=== PATIENT | female | born 1970 | race Hispanic/Latino ===

== ENCOUNTER 2017-06-18 22:49 | Emergency (ER) | payer MEDICAID, OTHER ==
[~2017-06-18] VITALS: Ht 162.6 cm; Wt 65.8 kg
[2017-06-18] MEDS ORDERED: NKM (22:53)
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
[2017-06-18 22:55] VITALS: BP 139/95
[2017-06-19 00:55] VITALS: BP 139/95
== END 2017-06-19 00:55 | disposition home or self-care (01) ==
LOC: EDBD 22:49 → EMR 23:07
DX: F10.129 Alcohol abuse with intoxication, unspecified (principal)
CPT/HCPCS: 99284

== ENCOUNTER 2019-11-05 20:02 | Emergency (ER) | payer MEDICAID ==
[~2019-11-05] VITALS: Ht 170.2 cm; Wt 99.8 kg
[~2019-11-05 20:02] MED LIST: NKM
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
[2019-11-05] MEDS ORDERED: Haloperidol 5mg/ml Inj IM ONE (20:15)
[2019-11-05] MEDS ORDERED: LORazepam Inj 2mg/ml 1ml IM ONE (20:15)
[2019-11-05] MEDS ORDERED: DiphenhydrAMINE 50mg/ml Inj IM ONE (20:15)
[2019-11-05 20:42] VITALS: BP 134/96
[2019-11-05 21:30] LABS: BASOPHILS % (AUTO) 0.7 % (0.0-2.0); EOSINOPHILS % (AUTO) 1.5 % (0.0-3.0); LYMPHOCYTES % (AUTO) 28.4 % (20.0-45.0); MEAN CORPUSCULAR VOLUME 88 FL (80-99); MONOCYTES % (AUTO) 3.3 % (1.0-10.0); NEUTROPHILS % (AUTO) 66.1 % (45.0-75.0); PLATELET COUNT 244 K/UL (150-450); RED BLOOD COUNT 5.13 M/UL (4.20-5.40); RED CELL DISTRIBUTION WIDTH 12.6 % (11.6-14.8); WHITE BLOOD COUNT 10.7 K/UL (4.8-10.8)
[2019-11-05 21:38] LABS: ANION GAP 20 mmol/L (5-15); BLOOD UREA NITROGEN 10 mg/dL (7-18); CALCIUM 8.8 MG/DL (8.5-10.1); CARBON DIOXIDE 18 MMOL/L (21-32); CHLORIDE 108 MMOL/L (98-107); CREATININE 0.8 MG/DL (0.55-1.30); POTASSIUM 3.5 MMOL/L (3.5-5.1); SODIUM 146 MMOL/L (136-145)
[2019-11-05 21:42] LABS: ALANINE AMINOTRANSFERASE 20 U/L (12-78); ALBUMIN 4.5 G/DL (3.4-5.0); ALBUMIN/GLOBULIN RATIO 1.2 (1.0-2.7); ALKALINE PHOSPHATASE 79 U/L (46-116); ASPARTATE AMINO TRANSFERASE 18 U/L (15-37); BILIRUBIN,TOTAL 0.3 MG/DL (0.2-1.0)
--- NOTE | 2019-11-05 22:40 | Emergency Room Report ---
Physical Exam Vital Signs Date Time Temp Pulse Resp B/P (MAP) Pulse Ox O2 Delivery O2 Flow Rate FiO2 11/05/19 20:05 98.2 130 20 134/96 (109) 96 Room Air Medical Decision Making Diagnostic Impression: Primary Impression: Behavioral disorder Additional Impression: Alcohol intoxication ER Course Assumed care of the patient from the previous provider at approximately 2200 h rs. Please refer to initial note for full history and physical exam. Briefly, 49-year-old female brought in on 5150 hold by [employer] for evaluation of bizarre behavior. She has received sedation. Labs show elevated alcohol level. Talk screen otherwise negative. Labs otherwise unremarkable. Patient is pending sobriety. Will sign out to oncoming provider. Laboratory Tests Test 11/05/19 21:11 11/06/19 03:00 11/06/19 03:50 White Blood Count 10.7 K/UL (4.8-10.8) Red Blood Count 5.13 M/UL (4.20-5.40) Hemoglobin 15.0 G/DL (12.0-16.0) Hematocrit 45.0 % (37.0-47.0) Mean Corpuscular Volume 88 FL (80-99) Mean Corpuscular Hemoglobin 29.3 PG (27.0-31.0) Mean Corpuscular Hemoglobin Concent 33.4 G/DL (32.0-36.0) Red Cell Distribution Width 12.6 % (11.6-14.8) Platelet Count 244 K/UL (150-450) Mean Platelet Volume 7.4 FL (6.5-10.1) Neutrophils (%) (Auto) 66.1 % (45.0-75.0) Lymphocytes (%) (Auto) 28.4 % (20.0-45.0) Monocytes (%) (Auto) 3.3 % (1.0-10.0) Eosinophils (%) (Auto) 1.5 % (0.0-3.0) Basophils (%) (Auto) 0.7 % (0.0-2.0) Sodium Level 146 MMOL/L (136-145) H Potassium Level 3.5 MMOL/L (3.5-5.1) Chloride Level 108 MMOL/L (98-107) H Carbon Dioxide Level 18 MMOL/L (21-32) L Anion Gap 20 mmol/L (5-15) H Blood Urea Nitrogen 10 mg/dL (7-18) Creatinine 0.8 MG/DL (0.55-1.30) Estimated Glomerular Filtration Rate > 60 mL/min (>60) Glucose Level 88 MG/DL (74-106) Calcium Level 8.8 MG/DL (8.5-10.1) Magnesium Level 2.3 MG/DL (1.8-2.4) Total Bilirubin 0.3 MG/DL (0.2-1.0) Aspartate Amino Transferase (AST) 18 U/L (15-37) Alanine Aminotransferase (ALT) 20 U/L (12-78) Alkaline Phosphatase 79 U/L (46-116) Total Protein 8.1 G/DL (6.4-8.2) Albumin 4.5 G/DL (3.4-5.0) Globulin 3.6 g/dL Albumin/Globulin Ratio 1.2 (1.0-2.7) Salicylates Level 3.6 ug/mL (2.8-20) Acetaminophen Level < 2 MCG/ML (10-30) L Serum Alcohol 285 mg/dL 162 mg/dL Urine Color Pale yellow Urine Appearance Clear Urine pH 5 (4.5-8.0) Urine Specific [place] 1.015 (1.005-1.035) Urine Protein Negative (NEGATIVE) Urine Glucose (UA) Negative (NEGATIVE) Urine Ketones Negative (NEGATIVE) Urine Blood Negative (NEGATIVE) Urine Nitrite Negative (NEGATIVE) Urine Bilirubin Negative (NEGATIVE) Urine Urobilinogen Normal MG/DL (0.0-1.0) Urine Leukocyte Esterase Negative (NEGATIVE) Urine HCG, Qualitative Negative (NEGATIVE) Urine Opiates Screen Negative (NEGATIVE) Urine Barbiturates Screen Negative (NEGATIVE) Phencyclidine (PCP) Screen Negative (NEGATIVE) Urine Amphetamines Screen Negative (NEGATIVE) Urine Benzodiazepines Screen Negative (NEGATIVE) Urine Cocaine Screen Negative (NEGATIVE) Urine Marijuana (THC) Screen Positive (NEGATIVE) H Microbiology Date/Time Source Procedure Growth Status 11/06/19 03:00 Nasopharynx SARS-CoV-2 RdRp Gene Assay - Final Complete Last Vital Signs Date Time Temp Pulse Resp B/P (MAP) Pulse Ox O2 Delivery O2 Flow Rate FiO2 11/05/19 20:42 98.2 130 20 134/96 96 Room Air Signed Out To: Dr. Reeves Referrals: SANA RODRIGUEZ,REFERRING (PCP) Additional Instructions: Please note that this report is being documented using [employer]AG[employer] technology. This can lead to erroneous entry secondary to incorrect interpretation by the dictating instrument. Yahir Dawson MD Nov 05, 2019 22:39
[2019-11-06] MEDS ORDERED: LORazepam Inj 2mg/ml 1ml IV ONE (01:00)
[2019-11-06 03:00] VITALS: BP 124/84
[2019-11-06 03:26] LABS: APPEARANCE,URINE CLEAR; BILIRUBIN, URINE NEGATIVE (NEGATIVE); COLOR,URINE PALE YELLOW; GLUCOSE, URINE (UA) NEGATIVE (NEGATIVE); KETONES,URINE NEGATIVE (NEGATIVE); LEUKOCYTE ESTERASE ,URINE NEGATIVE (NEGATIVE); NITRITE,URINE NEGATIVE (NEGATIVE); PH,URINE 5 (4.5-8.0); PROTEIN,URINE NEGATIVE (NEGATIVE); UROBILINOGEN,URINE NORMAL MG/DL (0.0-1.0)
[2019-11-06 05:00] VITALS: BP 126/76
[2019-11-06 07:01] VITALS: BP 130/79
[2019-11-06 09:00] VITALS: BP 129/74
[2019-11-06 11:00] VITALS: BP 128/78
[2019-11-06 11:56] VITALS: BP 128/78
--- NOTE | 2019-11-06 18:30 | Consultation ---
DATE OF CONSULTATION: 11/06/2019 CONSULTING PHYSICIAN: Edgardo Olivia MD HISTORY OF PRESENT ILLNESS: This is a 49-year-old female with history of alcohol and cannabis abuse, who was brought into the emergency room on 5150. The patient sobered up. It appeared that she had been at a friend's house and had been drinking alcohol and using weed. The patient was placed on 5150 for danger to self. Upon evaluation, the patient is denying any depressive and is not endorsing any anxiety or psychotic symptoms. No suicidal or homicidal ideation. She stated that she has multiple psychosocial stressors in her life. She is currently unemployed. She is [address] [place] [address]. She does not have any financial issues; however, she has multiple family conflicts that is affecting her mental status. She is not an imminent danger to self or others. PAST PSYCHIATRIC HISTORY: She denied psychiatric hospitalization. She denied suicide attempt. PAST MEDICAL HISTORY: Nonsignificant. ALLERGIES: Chart was reviewed. SUBSTANCE ABUSE HISTORY: Significant for alcohol and cannabis abuse versus dependence. She denied drinking or smoking on a daily basis. MENTAL STATUS EXAMINATION: The patient is alert and oriented times self, place, situation, and date. Mood is neutral. Affect is blunted, congruent with mood. Thought process linear and goal-oriented. Thought content, there is no suicidal or homicidal ideation. No psychotic symptoms. Cognition is intact. Insight and judgment fair. ASSESSMENT: [place] I Alcohol abuse. Cannabis dependence versus abuse. PPSD per the patient. [place] II Deferred. [place] III None. [place] IV Family conflicts. [place] V 60 PLAN: 1. The patient is not an imminent danger to self or others. 2. We will discontinue the 5150 hold. 3. The patient is reluctant to take any SSRIs. 4. Provided the patient with reality orientation and supportive therapy. Edgardo Olivia M.D. DR: KATHY JOB#: [id number] CC:
== END 2019-11-06 11:56 | disposition home or self-care (01) ==
LOC: EDBD 20:02 → EMR 21:08
DX: F91.9 Conduct disorder, unspecified (principal); F10.129 Alcohol abuse with intoxication, unspecified; Y90.8 Blood alcohol level of 240 mg/100 ml or more
CPT/HCPCS: 36415; 80053; 80307; 81003; 81025; 83735; 85025; 96361; 96372; 96374; G0480; G0481; J1200; J1630; J7030; U0002; Z7502; 99285